=== PATIENT | female | born 2000 | race Caucasian/White ===

== ENCOUNTER 2020-01-22 19:47 | Outpatient (CLI) | payer OTHER ==
[2020-01-22 20:17] LABS: APPEARANCE,URINE CLOUDY; BILIRUBIN,URINE NEGATIVE (NEGATIVE); COLOR,URINE YELLOW; GLUCOSE, URINE NEGATIVE (NEGATIVE); KETONES,URINE NEGATIVE (NEGATIVE); LEUKOCYTE ESTERASE,URINE MODERATE (NEGATIVE); NITRITE,URINE NEGATIVE (NEGATIVE); PROTEIN,URINE 100 mg/dL (NEGATIVE); URINE SPECIFIC GRAVITY 1.031
[2020-01-22 20:32] LABS: URINE AMPHETAMINES SCREEN NEGATIVE; URINE BARBITURATES SCREEN NEGATIVE; URINE BENZODIAZEPINES SCREEN NEGATIVE; URINE COCAINE SCREEN NEGATIVE; URINE MARIJUANA (THC) SCREEN NEGATIVE; URINE METHADONE SCREEN NEGATIVE; URINE PHENCYCLIDINE SCREEN NEGATIVE
[2020-01-22 21:23] LABS: ABSOLUTE EOSINOPHILS # (AUTO) 0.1 10^3/uL (0.0-0.6); ABSOLUTE LYMPHOCYTES (AUTO) 1.7 10^3/uL (0.5-4.7); ABSOLUTE MONOCYTES (AUTO) 0.5 10^3/uL (0.1-1.4); ABSOLUTE NEUT (AUTO) 5.9 10^3/uL (1.7-8.2); BASOPHILS % (AUTO) 0.4 % (0-2); EOSINOPHILS % (AUTO) 0.8 % (0-6); HEMATOCRIT 30.5 % (36.0-47.0); HEMOGLOBIN 10.1 g/dL (12.0-15.5); LYMPHOCYTES % (AUTO) 21.2 % (13-45); MEAN CORPUSCULAR HEMOGLOBIN 23.7 pg (27.0-33.4); MEAN CORPUSCULAR HGB CONC 33.1 g/dL (32.0-36.0); MEAN CORPUSCULAR VOLUME 72 fl (80-97); MONOCYTES % (AUTO) 5.6 % (3-13); PLATELET COUNT 261 10^3/uL (150-450); RED BLOOD COUNT 4.26 10^6/uL (3.72-5.28); RED CELL DISTRIBUTION WIDTH 15.8 % (11.5-14.0); TOTAL CELLS COUNTED % (AUTO) 100 %; WHITE BLOOD COUNT 8.2 10^3/uL (4.0-10.5)
[2020-01-22 21:30] LABS: UR PRO/CREAT RATIO RESULT 0.1 mg/mg (0.0-0.2); URINE CREATININE 203.5 mg/dL (16-327)
[2020-01-22 21:41] LABS: ALBUMIN 3.2 g/dL (3.5-5.0); ALKALINE PHOSPHATASE 156 U/L (38-126); ANION GAP 7 (5-19); ASPARTATE AMINO TRANSFERASE 27 U/L (14-36); BILIRUBIN,TOTAL 0.6 mg/dL (0.2-1.3); BLOOD UREA NITROGEN 16 mg/dL (7-20); CALCIUM 8.8 mg/dL (8.4-10.2); CARBON DIOXIDE 21 mmol/L (22-30); CHLORIDE 103 mmol/L (98-107); GLUCOSE 78 mg/dL (75-110); POTASSIUM 4.3 mmol/L (3.6-5.0); TOTAL PROTEIN 6.3 g/dL (6.3-8.2); URIC ACID 5.5 mg/dL (2.5-6.2)
--- NOTE | 2020-01-24 12:54 | Non Stress Test Report ---
Non Stress Test Datetime Report Generated by CPN: 01/24/2020 12:54 DEMOGRAPHIC Test Number: 1 EGA NST: 37.2 INDICATION Indication for Study (NST) Other: lc and bp workup URINE RESULTS Urine Protein, NST: Positive Urine Ketones - NST: Negative Urine Glucose - NST: Negative Urine Blood - NST: Negative MONITORING Monitor Explained: Monitor Explained; Test Explained; Patient Verbalized Understanding Time on Monitor: 01/22/2020 20:08 Time off Monitor: 01/22/2020 22:09 NST Duration: 121 NST INTERVENTIONS NST Interventions: None Physician Notified NST: Dr. Peyman BABY A: [id number] BABY A Movement : Present Contraction Frequency : irreg FHR Baseline : 145 Accelerations : 15X15 Decelerations : None Variability : Moderate 6-25bpm NST Review: Meets Criteria for Reactive NST NST Review and Verified By : Nelida Bunch RN Results: Reactive NST REPORT Report Trigger: Send Report
== END 2020-01-22 22:23 | disposition home or self-care (01) ==
LOC: LC 19:47
PROVIDERS: ATTEND Obstetrics & Gynecology
DX: O47.1 False labor at or after 37 completed weeks of gestation (principal); Z3A.37 37 weeks gestation of pregnancy
CPT/HCPCS: 36415; 59025; 80053; 80307; 81001; 82570; 83615; 84156; 84550; 85025

== ENCOUNTER 2020-01-24 12:55 | Outpatient (CLI) | payer OTHER ==
[2020-01-24 14:04] LABS: 24 HOUR URINE PROTEIN RESULT 231 mg/day (42-225); URINE PROTEIN 11.2 mg/dL (<12)
--- NOTE | 2020-01-24 14:22 | Non Stress Test Report ---
Non Stress Test Datetime Report Generated by CPN: 01/24/2020 14:22 DEMOGRAPHIC EGA NST: 37.4 MONITORING Monitor Explained: Monitor Explained; Test Explained; Patient Verbalized Understanding Time on Monitor: 01/24/2020 13:36 Time off Monitor: 01/24/2020 14:10 NST Duration: 34 NST INTERVENTIONS NST Interventions: PO Hydration Physician Notified NST: Dr. Delgado BABY A Movement : Present Contraction Frequency : rare FHR Baseline : 140 Accelerations : 15X15 Decelerations : None Variability : Moderate 6-25bpm NST Review: Meets Criteria for Reactive NST NST Review and Verified By : B Baidy RN NST Results: Reactive NST REPORT Report Trigger: Send Report
== END 2020-01-24 14:19 | disposition home or self-care (01) ==
LOC: LC 12:55
PROVIDERS: ATTEND Obstetrics & Gynecology Gynecology
DX: O12.13 Gestational proteinuria, third trimester (principal); Z3A.37 37 weeks gestation of pregnancy
CPT/HCPCS: 59025; 84112; 84156

== ENCOUNTER 2020-01-27 23:20 | Outpatient (CLI) | payer OTHER ==
[2020-01-28 01:05] LABS: APPEARANCE,URINE CLEAR; BILIRUBIN,URINE NEGATIVE (NEGATIVE); COLOR,URINE YELLOW; GLUCOSE, URINE NEGATIVE (NEGATIVE); KETONES,URINE NEGATIVE (NEGATIVE); LEUKOCYTE ESTERASE,URINE NEGATIVE (NEGATIVE); NITRITE,URINE NEGATIVE (NEGATIVE); PROTEIN,URINE 30 mg/dL (NEGATIVE); URINE SPECIFIC GRAVITY 1.017; UROBILINOGEN,URINE NEGATIVE mg/dL (<2.0)
[2020-01-28 02:10] LABS: URINE AMPHETAMINES SCREEN NEGATIVE; URINE BENZODIAZEPINES SCREEN NEGATIVE; URINE COCAINE SCREEN NEGATIVE; URINE MARIJUANA (THC) SCREEN NEGATIVE; URINE METHADONE SCREEN NEGATIVE; URINE PHENCYCLIDINE SCREEN NEGATIVE
[2020-01-28 02:12] LABS: URINE BARBITURATES SCREEN NEGATIVE
--- NOTE | 2020-01-28 02:30 | Non Stress Test Report ---
Non Stress Test Datetime Report Generated by CPN: 01/28/2020 02:30 DEMOGRAPHIC Test Number: 1 EGA NST: 38.1 INDICATION Indication for Study (NST) Other: Labor Check VITAL SIGNS Temperature - NST: 98.4 Pulse - NST: 67 RESP - NST: 14 NBPSYS NST: 133 NBPDIA NST: 76 MONITORING Monitor Explained: Monitor Explained; Test Explained; Patient Verbalized Understanding Time on Monitor: 01/28/2020 12:00 Time off Monitor: 01/28/2020 12:20 NST Duration: 20 NST INTERVENTIONS NST Interventions: PO Hydration; Reposition Patient Physician Notified NST: Delgado BABY A: [id number] BABY A Movement : Present Contraction Frequency : 2-5 FHR Baseline : 130 Accelerations : 15X15 Decelerations : None Variability : Moderate 6-25bpm NST Review: Meets Criteria for Reactive NST NST Review and Verified By : DAYNA Rocha NST Results: Reactive NST REPORT Report Trigger: Send Report
== END 2020-01-28 02:28 | disposition home or self-care (01) ==
LOC: LC 23:20
PROVIDERS: ATTEND Obstetrics & Gynecology Gynecology
DX: O47.1 False labor at or after 37 completed weeks of gestation (principal); Z3A.38 38 weeks gestation of pregnancy
CPT/HCPCS: 80307; 81005

== ENCOUNTER 2020-02-01 15:49 | Inpatient (IN) | payer OTHER ==
[2020-02-01 16:27] LABS: ABSOLUTE EOSINOPHILS # (AUTO) 0.1 10^3/uL (0.0-0.6); ABSOLUTE LYMPHOCYTES (AUTO) 1.8 10^3/uL (0.5-4.7); ABSOLUTE MONOCYTES (AUTO) 0.5 10^3/uL (0.1-1.4); ABSOLUTE NEUT (AUTO) 6.3 10^3/uL (1.7-8.2); BASOPHILS % (AUTO) 0.5 % (0-2); EOSINOPHILS % (AUTO) 0.7 % (0-6); HEMATOCRIT 31.9 % (36.0-47.0); HEMOGLOBIN 10.6 g/dL (12.0-15.5); LYMPHOCYTES % (AUTO) 20.7 % (13-45); MEAN CORPUSCULAR HEMOGLOBIN 23.3 pg (27.0-33.4); MEAN CORPUSCULAR VOLUME 71 fl (80-97); PLATELET COUNT 266 10^3/uL (150-450); RED BLOOD COUNT 4.52 10^6/uL (3.72-5.28); RED CELL DISTRIBUTION WIDTH 15.9 % (11.5-14.0); SEGMENTED NEUTROPHILS % (AUTO) 72.1 % (42-78); TOTAL CELLS COUNTED % (AUTO) 100 %; WHITE BLOOD COUNT 8.7 10^3/uL (4.0-10.5)
[2020-02-01] MEDS ORDERED: NALBUPHINE HCL INJ 10 MG/1 ML AMPULE ONE (16:27)
[2020-02-01] MEDS ORDERED: PROMETHAZINE HCL INJ 25 MG/1 ML VIAL ONE (16:27)
[2020-02-01 16:29] LABS: APPEARANCE,URINE CLOUDY; BILIRUBIN,URINE NEGATIVE (NEGATIVE); COLOR,URINE YELLOW; GLUCOSE, URINE NEGATIVE (NEGATIVE); KETONES,URINE NEGATIVE (NEGATIVE); LEUKOCYTE ESTERASE,URINE MODERATE (NEGATIVE); NITRITE,URINE NEGATIVE (NEGATIVE); PROTEIN,URINE 100 mg/dL (NEGATIVE); URINE SPECIFIC GRAVITY 1.024; UROBILINOGEN,URINE NEGATIVE mg/dL (<2.0)
[2020-02-01] MEDS ORDERED: PROMETHAZINE HCL INJ 25 MG/1 ML VIAL IV ONE (16:30)
[2020-02-01] MEDS ORDERED: NALBUPHINE HCL INJ 10 MG/1 ML AMPULE INJ ONE (16:31)
--- NOTE | 2020-02-01 16:41 | Admission Physical ---
Datetime Report Generated by CPN: 02/01/2020 16:41 CURRENT ADMISSION Chief Complaint: Suspected Ruptured Membranes Chief Complaint Other: SROM at 1530-light meconium Indication for Induction: Not Applicable Admit Impression : Term, Intrauterine ; Active Labor; Ruptured Membranes Admit Impression- Other: Gross SROM Admit Plan: Admit to Unit; Initiate Labor Protocol ALLERGIES Medication Allergies: No Medication Allergies: No Known Allergies (01/27/2020) Latex: No Latex Allergies Food Allergies: denies Environmental Allergies: denies OBSTETRICAL HISTORY EDC: 02/10/2020 00:00 : 1 Para: 0 Term: 0 : 0 SAB: 0 IAB: 0 Ectopic: 0 Livin Cesareans: 0 VBACs: 0 Multiple Births: 0 Gestational Diabetes: No Rh Sensitization: No Incompetent Cervix: No ANGEL: No Infertility: No ART Treatment: No Uterine Anomaly: No IUGR: No Hx Previous C/S: No Macrosomia: No Hx Loss/Stillborn: No PIH: No Hx : No Placenta Previa/Abruption: No Depression/PP Depression: No PTL/PROM: No Post Hemorrhage: No Current Procedures: Ultrasound; NST Obstetrical History Comments: g1-current , supposed to have an echo on the heart but hasnt been able to due to Covid 19 SEE RECORDS Alcohol: No Marijuana : No Cocaine: No Other Illicit Drugs: No Cigarettes: Never Smoker. [id number] MEDICAL HISTORY Diabetes: No Blood Transfusion: No Pulmonary Disease (Asthma, TB): No Breast Disease: No Hypertension: No Regional Coordinator Surgery: No Heart Disease: No Hosp/Surgery: Yes Autoimmune Disorder: No Anesthetic Complications: No Kidney Disease: No Abnormal Pap Smear: No Neuro/Epilepsy: No Psychiatric Disorders: No Other Medical Diseases: No Hepatitis/Liver Disease: No Significant Family History: No Varicosities/Phlebitis: No Trauma/Violence : No Thyroid Dysfunction: Yes Medical History Comments: heart murmur (VSD), bunionectomy on both feet, hashimotos, wisdom teeth removed INFECTIOUS HISTORY Gonorrhea: No Genital Herpes: No Chlamydia: No Tuberculosis: No Syphilis: No Hepatitis: No HIV/AIDS Exposure: No Rash or Viral Illness: No HPV: No PHYSICAL EXAM General: Normal Neurologic: Normal Thyroid: Deferred Heart: Normal Lungs: Normal Breast: Deferred Back: Normal Abdomen: Normal Genitourinary Exam: Deferred Extremities: Normal DTRs: Normal Pelvic Type: Adequate Physical Exam Comments: Gravid Vital Signs: Reviewed; Within Normal Limits VAGINAL EXAM Dilatation: 5 Effacement: 90 Station: -1 MEMBRANES Membranes: Ruptured Amniotic Fluid Color: Meconium, Light FETUS A EGA: 38.5 Monitoring: External US FHR- Baseline: 130 Variability: Moderate 6-25bpm Accelerations: 15X15 Decelerations: None FHR Category: Category I Presentation: Vertex Admit Comment: G1 Has heart murmur-small VSD; echo not done due to pandemic Hashimotos-labs done GBS negative records rev-on chart Plan: admit, pain management, IVF PLANS FOR LABOR AND DELIVERY Labor and Delivery: None Pain Management: Medications; Epidural Feeding Preference: Breast Benefit of Breast Feed Discussed: Yes Circumcision: N/A INFORMED CONSENT Assignment: Pastora Sifuentes MD Signature: with User ID: Mary : with User ID: Mary : I personally evaluated and examined the patient in conjunction with the MLP and agree with the assessment, treatment plan and disposition.
[2020-02-01 16:46] LABS: URINE AMPHETAMINES SCREEN NEGATIVE; URINE BARBITURATES SCREEN NEGATIVE; URINE BENZODIAZEPINES SCREEN NEGATIVE; URINE COCAINE SCREEN NEGATIVE; URINE MARIJUANA (THC) SCREEN NEGATIVE; URINE METHADONE SCREEN NEGATIVE; URINE PHENCYCLIDINE SCREEN NEGATIVE
[2020-02-01] MEDS ORDERED: OXYTOCIN/0.9 % SODIUM CHLORIDE 30 UNIT/500 ML RTUINJ ONE (18:17)
[2020-02-01] MEDS ORDERED: LIDOCAINE 1% INJ-PF (10 MG/ML) 30 ML SDV ONE (18:17)
[2020-02-01] MEDS ORDERED: MISOPROSTOL 0.2 MG TABLET ONE (18:17)
[2020-02-01] MEDS ORDERED: OXYTOCIN 10 UNIT/ML VIAL ONE (18:17)
[2020-02-01] MEDS ORDERED: EPHEDRINE SULFATE INJ 50 MG/1 ML AMPULE ONE (18:28)
[2020-02-01] MEDS ORDERED: FENTANYL/BUPIVACAINE/NS/PF 300 MCG/150 ML RTUINJ EPI ONE (18:28)
[2020-02-01] MEDS ORDERED: BUPIVACAINE HCL 0.25 % INJ/PF (2.5 MG/1 ML) 30 ML VIAL ONE (18:28)
[2020-02-01] MEDS ORDERED: FENTANYL CITRATE INJ/PF 100 MCG/2 ML AMPUL ONE (18:29)
[2020-02-01] MEDS ORDERED: DIPHENHYDRAMINE HCL 50 MG/ML VIAL IV ONE (20:33)
[2020-02-01] MEDS ORDERED: DIPHENHYDRAMINE HCL 50 MG/ML VIAL ONE (20:35)
[2020-02-02] MEDS ORDERED: OXYTOCIN/0.9 % SODIUM CHLORIDE 30 UNIT/500 ML RTUINJ IV PRN ×2 (03:11→03:56)
[2020-02-02] MEDS ORDERED: DIPH/PERTUSS(ACELL)/TETANUS VAC/PF 0.5 ML SYR (>=10YO) IM PRN (03:56)
[2020-02-02] MEDS ORDERED: NA PHOS,M-B/NA PHOS,DI-BA (ADULT) 133 ML ENEMA PR PRN (03:56)
[2020-02-02] MEDS ORDERED: ACETAMINOPHEN 650 MG SUPP.RECT PR PRN (03:56)
[2020-02-02] MEDS ORDERED: PROMETHAZINE HCL INJ 25 MG/1 ML VIAL IV PRN (03:56)
[2020-02-02] MEDS ORDERED: PSEUDOEPHEDRINE HCL 30 MG TABLET PO PRN (03:56)
[2020-02-02] MEDS ORDERED: MAGNESIUM HYDROXIDE SUSP 30 ML UDCUP PO PRN (03:56)
[2020-02-02] MEDS ORDERED: PROMETHAZINE HCL 25 MG SUPP.RECT PR PRN (03:56)
[2020-02-02] MEDS ORDERED: ACETAMINOPHEN WITH CODEINE #3 TABLET PO PRN ×2 (03:56)
[2020-02-02] MEDS ORDERED: DIPHENHYDRAMINE HCL 25 MG CAPSULE PO PRN (03:56)
[2020-02-02] MEDS ORDERED: DIBUCAINE 1% OINTMENT 28 GM TP PRN (03:56)
[2020-02-02] MEDS ORDERED: GLYCERIN/WITCH HAZEL LEAF 1 EACH MED..WIPE TP PRN (03:56)
[2020-02-02] MEDS ORDERED: ZOLPIDEM TARTRATE 5 MG TABLET PO PRN (03:56)
[2020-02-02] MEDS ORDERED: MEASLES,MUMPS&RUBELLA VACC/PF 0.5 ML VIAL SUBCUT PRN (03:56)
[2020-02-02] MEDS ORDERED: PROMETHAZINE HCL 25 MG TABLET PO PRN (03:56)
[2020-02-02] MEDS ORDERED: BENZOCAINE/MENTHOL AEROSOL SPRAY 56 ML TOP PRN (03:56)
--- NOTE | 2020-02-02 05:01 | Delivery Summary ---
Del Sum A-C Datetime Report Generated by CPN: 02/02/2020 05:00 DELIVERY PERSONNEL DELIVERY PERSONNEL: [id number] Delivery Doctor:: Pastora Sifuentes MD Labor and Delivery Nurse:: Afsaneh Hale RNinvestment recovery technician Nurse:: CHICA Jenkins Nursery Nurse:: Mary Rosado Nursery Nurse:: Marha Argueta RN Linen Checker/HIGH PRESSURE KETTLE OPERATOR: Aria Lockett, MANGLE FEEDER MATERNAL INFORMATION Delivery Anesthesia: Epidural Medications After Delivery: Pitocin 30 Units in 500ml NS/D5W; Other-Please Comment Meds After Delivery Comment: Cytotec 400mcg PO Estimated Blood Loss (ml): 250 Delivery QBL: 250 Maternal Complications: None LABOR SUMMARY EDC: 02/10/2020 00:00 No. Babies in Womb: 1 Attempted: No Labor Anesthesia: Epidural LABOR INFORMATION Reason for Induction: Not Applicable Onset of Labor: 02/01/2020 16:18 Complete Dilatation: 02/01/2020 23:51 Oxytocin: Augmentation Group B Beta Strep: Negative Antibiotics # of Doses: 0 Antibiotics Time of Last Dose: n/a Name of Antibiotic Given: n/a Steroids Given: None Reason Steroids Not Administered: Not Applicable MEMBRANES Membranes Rupture Method: Spontaneous Rupture of Membranes: 02/01/2020 15:30 Length of Rupture (hr): 12.13 Amniotic Fluid Color: Light Meconium Amniotic Fluid Amount: Moderate Amniotic Fluid Odor: Normal STAGES OF LABOR Stage 1 hr: 7 Stage 1 min: 33 Stage 2 hr: 3 Stage 2 min: 47 Stage 3 hr: 0 Stage 3 min: 3 Total Time in Labor hr: 11 Total Time in Labor min: 23 VAGINAL DELIVERY Episiotomy: None Laceration #1: Perineal Laceration Extension #1: First Degree Laceration Repair: Yes Laceration Repair Note: repair with 3-0 chromic suture. Sponge Count Correct: Yes; Vaginal Sweep Performed Sharps Count Correct: Yes CSECTION DELIVERY Primary Indication: N/A Secondary Indication: N/A CSection Incidence: N/A Labor: N/A Elective: N/A CSection Incision: N/A BABY A INFORMATION Delivery Date/Time: 02/02/2020 03:38 Method of Delivery: Vaginal Nurse Controlled Delivery: No Born in Route : No : N/A Forceps: N/A Vacuum Extraction: N/A Shoulder Dystocia : No PRESENTATION/POSITION BABY A Presentation: Cephalic Cephalic Presentation: Vertex Vertex Position: Left Occipital Anterior Breech Presentation: N/A PLACENTA INFORMATION BABY A Placenta Delivery Time : 02/02/2020 03:41 Placenta Method of Delivery: Spontaneous Placenta Status: Delivered SCORES BABY A Heart Rate 1 min: >100 bpm Resp Effort 1 min: Good Cry Reflex Irritability 1 min: Cough or Sneeze or Pulls Away Muscle Tone 1 min: Active Motion Color 1 min: Blue/Pale Resuscitation Effort 1 min: Tactile Stimulation SCORE 1 MIN: 8 Heart Rate 5 min: >100 bpm Resp Effort 5 min: Good Cry Reflex Irritability 5 min: Cough or Sneeze or Pulls Away Muscle Tone 5 min: Active Motion Color 5 min: Body [place], Extremities Blue SCORE 5 MIN: 9 INFANT INFORMATION BABY A Gestational Age at Delivery: 38.6 Gestational Status: Early Term- 37- 38.6 Weeks Infant Outcome : Liveborn Infant Condition : Stable Infant Sex: Female IDENTIFICATION BABY A Infant Verification Date/Time: 02/02/2020 03:51 ID Band Number: [id number] Mother's Name Verified: Yes RN Verifying Infant: K Mahad, RN/ D [place] [facility] WEIGHT/LENGTH BABY A Infant Birthweight (gm): 3729 Infant Weight (lb): 8 Infant Weight (oz): 4 Infant Length (in): 21.75 Length (cm): 55.25 CORD INFORMATION BABY A No. Cord Vessels: 3 Nuchal Cord : N/A Cord Blood Taken: Yes-For Storage (Mom's Blood type +) Infant Suction: None ASSESSMENT BABY A Complications: None Physical Findings at Delivery: Molding of the Head Respirations: Appears Normal Skin to Skin: No Skin to Skin Time (min): 60 Engine Tester/ALS Called : Yes Infant Care By: Haylie Rosado RN Transferred To: Remains with Mother BABY B INFORMATION : N/A SIGNATURES Signature: with User ID: [email or web address] : I personally evaluated and examined the patient in conjunction with the MLP and agree with the assessment, treatment plan and disposition.
[2020-02-02] MEDS ORDERED: IBUPROFEN 800 MG TABLET ONE (05:28)
[2020-02-02] MEDS: IBUPROFEN 800 MG TABLET PO SCH ×3 (05:30→21:10)
[2020-02-02] MEDS: FAMOTIDINE 20 MG TABLET PO SCH ×2 (09:18→21:10)
[2020-02-02] MEDS: FERROUS SULFATE 325 MG TABLET PO SCH ×2 (09:18→17:06)
[2020-02-02] MEDS: DOCUSATE SODIUM 100 MG CAPSULE PO SCH ×2 (09:18→17:07)
[2020-02-02] MEDS: SENNOSIDES/DOCUSATE 8.6-50 MG 1 EACH TABLET PO SCH (09:18)
[2020-02-02] MEDS: PRENATAL VITAMIN W DHA CAPSULE PO SCH (09:18)
--- NOTE | 2020-02-02 09:19 | PDOC PROGRESS REPORT ---
Subjective-OB Progress Note for:: 02/02/20 Subjective: Doing well, no c/o, , family at BS, voiding, scant bleeding Physical Exam (OB) Vital Signs: Temp Pulse Resp BP Pulse Ox 98.7 F 106 H 18 123/80 99 02/02/20 07:51 02/02/20 07:51 02/02/20 07:51 02/02/20 07:51 02/02/20 07:51 Intake & Output 02/01/20 02/02/20 02/03/20 06:59 06:59 06:59 Weight 87.1 kg - PIH/Pre-Eclampsia DTR's: 2 + Clonus: Negative Headache: Absent Epigastric Pain: No Visual Changes: No - Lochia Lochia Amount: Scant < 10 ml Lochia Color: Rubra/Red - Abdomen Description: Soft, Round Fundal Description: Firm, Midline Fundal Height: u/u - u/2 Objective-Diagnostic Laboratory: 02/01/20 16:10 02/01/20 02/01/20 02/01/20 15:50 16:10 16:10 WBC 8.7 RBC 4.52 Hgb 10.6 L Hct 31.9 L MCV 71 L MCH 23.3 L MCHC 33.0 RDW 15.9 H Plt Count 266 Seg Neutrophils % 72.1 Urine Color YELLOW Urine Appearance CLOUDY Urine pH 5.0 Ur Specific [place] 1.024 Urine Protein 100 H Urine Glucose (UA) NEGATIVE Urine Ketones NEGATIVE Urine Blood LARGE H Urine Nitrite NEGATIVE Ur Leukocyte Esterase MODERATE H Blood Type A POSITIVE Antibody Screen NEGATIVE Assessment and Plan(PN) - Assessment and Plan (1) Vaginal delivery Is this a current diagnosis for this admission?: Yes - Time Spent with Patient Time with patient: Less than 15 minutes Medications reviewed and adjusted accordingly: Yes - Disposition Anticipated Discharge: Home Within: within 24 hours
[2020-02-03] MEDS: IBUPROFEN 800 MG TABLET PO SCH ×3 (06:46→22:02)
[2020-02-03 07:35] LABS: HEMATOCRIT 28.1 % (36.0-47.0); HEMOGLOBIN 9.2 g/dL (12.0-15.5); MEAN CORPUSCULAR HEMOGLOBIN 23.2 pg (27.0-33.4); MEAN CORPUSCULAR HGB CONC 32.7 g/dL (32.0-36.0); MEAN CORPUSCULAR VOLUME 71 fl (80-97); PLATELET COUNT 216 10^3/uL (150-450); RED BLOOD COUNT 3.95 10^6/uL (3.72-5.28); RED CELL DISTRIBUTION WIDTH 16.7 % (11.5-14.0); WHITE BLOOD COUNT 8.9 10^3/uL (4.0-10.5)
[2020-02-03] MEDS: FERROUS SULFATE 325 MG TABLET PO SCH ×2 (09:15→17:33)
[2020-02-03] MEDS: FAMOTIDINE 20 MG TABLET PO SCH ×2 (09:15→22:06)
[2020-02-03] MEDS: SENNOSIDES/DOCUSATE 8.6-50 MG 1 EACH TABLET PO SCH (09:15)
[2020-02-03] MEDS: PRENATAL VITAMIN W DHA CAPSULE PO SCH (09:15)
[2020-02-03] MEDS: DOCUSATE SODIUM 100 MG CAPSULE PO SCH ×2 (09:15→17:33)
--- NOTE | 2020-02-03 11:10 | PDOC PROGRESS REPORT ---
Subjective-OB Progress Note for:: 02/03/20 Subjective: 19yo G1 now P1 s/p ppd 1 ambulating, voiding without difficulty. Reports pain well controlled with medication, denies any concerns today, reports she has been stressed due to baby's broken clavicle, wondering if that might be why her blood pressure is high. Denies s/s of pre-e. Physical Exam (OB) Vital Signs: Temp Pulse Resp BP Pulse Ox 97.5 F 100 18 138/94 H 96 02/03/20 07:30 02/03/20 07:30 02/03/20 07:30 02/03/20 07:30 02/03/20 07:30 Intake & Output 02/02/20 02/03/20 02/04/20 06:59 06:59 06:59 Intake Total 1200 Balance 1200 Weight 87.1 kg - General General Appearance: Appears well In distress: None - PIH/Pre-Eclampsia DTR's: 2 + Clonus: Negative Headache: Absent Epigastric Pain: No Visual Changes: No - Episiotomy/Laceration Site Condition: Well Approximated - Lochia Lochia Amount: Scant < 10 ml Lochia Color: Rubra/Red - Abdomen Fundal Description: Firm, Midline Fundal Height: u/u - u/2 - Respiratory Respiratory Status: No respiratory distress - Extremities Upper extremity: Normal inspection Lower extremities: Normal inspection - Neurological Cognition: Normal Orientation: AAOx4 - Psychological Associated symptoms: Normal affect, Normal mood Objective-Diagnostic Laboratory: 02/03/20 07:20 02/03/20 07:20 WBC 8.9 RBC 3.95 Hgb 9.2 L Hct 28.1 L MCV 71 L MCH 23.2 L MCHC 32.7 RDW 16.7 H Plt Count 216 Assessment and Plan(PN) - Assessment and Plan (1) Anemia complicating , third trimester Is this a current diagnosis for this admission?: Yes Plan: increase dietary iron and FeSO4 BID (2) Perineal laceration during delivery, delivered Is this a current diagnosis for this admission?: Yes Plan: continue to monitor for s/s/ of infection (3) Hypertension, condition or complication Is this a current diagnosis for this admission?: Yes Plan: continue to monitor for s/s/ of pre-e (4) Vaginal delivery Is this a current diagnosis for this admission?: Yes Plan: routine pp care - Time Spent with Patient Time with patient: Less than 15 minutes Medications reviewed and adjusted accordingly: Yes - Disposition Anticipated Discharge: Home Within: within 24 hours
[2020-02-04] MEDS: IBUPROFEN 800 MG TABLET PO SCH (06:36)
--- NOTE | 2020-02-04 09:42 | PDOC DISCHARGE SUMMARY ---
Impression - Admit/DC Date/PCP Admission Date/Primary Care Provider: 02/01/20 15:52 WALE PETER PA-C Discharge Date: 02/04/20 - Discharge Diagnosis (1) Anemia complicating , third trimester Is this a current diagnosis for this admission?: Yes (2) Hypertension, condition or complication Is this a current diagnosis for this admission?: Yes (3) Perineal laceration during delivery, delivered Is this a current diagnosis for this admission?: Yes (4) Vaginal delivery Is this a current diagnosis for this admission?: Yes - Additional Information Discharge Diet: Regular Discharge Activity: Balance Activity w/Rest, Pelvic Rest Referrals: WALE PETER PA-C [Primary Care Provider] - Prescriptions: Ibuprofen [Motrin 800 mg Tablet] 800 mg PO Q8HP PRN #60 tablet PRN Reason: Home Medications: Pnv No.95/Ferrous Fum/Folic AC [ Vitamins Tablet] 1 tab PO DAILY 01/22/20 Ibuprofen [Motrin 800 mg Tablet] 800 mg PO Q8HP PRN #60 tablet 02/04/20 Results Laboratory Results: WBC 8.9 10^3/uL (4.0-10.5) 02/03/20 07:20 RBC 3.95 10^6/uL (3.72-5.28) 02/03/20 07:20 Hgb 9.2 g/dL (12.0-15.5) L 02/03/20 07:20 Hct 28.1 % (36.0-47.0) L 02/03/20 07:20 MCV 71 fl (80-97) L 02/03/20 07:20 MCH 23.2 pg (27.0-33.4) L 02/03/20 07:20 MCHC 32.7 g/dL (32.0-36.0) 02/03/20 07:20 RDW 16.7 % (11.5-14.0) H 02/03/20 07:20 Plt Count 216 10^3/uL (150-450) 02/03/20 07:20 Lymph % (Auto) 20.7 % (13-45) 02/01/20 16:10 [place] % (Auto) 6.0 % (3-13) 02/01/20 16:10 Eos % (Auto) 0.7 % (0-6) 02/01/20 16:10 Baso % (Auto) 0.5 % (0-2) 02/01/20 16:10 Absolute Neuts (auto) 6.3 10^3/uL (1.7-8.2) 02/01/20 16:10 Absolute Lymphs (auto) 1.8 10^3/uL (0.5-4.7) 02/01/20 16:10 Absolute Monos (auto) 0.5 10^3/uL (0.1-1.4) 02/01/20 16:10 Absolute Eos (auto) 0.1 10^3/uL (0.0-0.6) 02/01/20 16:10 Absolute Basos (auto) 0.0 10^3/uL (0.0-0.2) 02/01/20 16:10 Seg Neutrophils % 72.1 % (42-78) 02/01/20 16:10 Urine Color YELLOW 02/01/20 15:50 Urine Appearance CLOUDY 02/01/20 15:50 Urine pH 5.0 (5.0-9.0) 02/01/20 15:50 Ur Specific [place] 1.024 02/01/20 15:50 Urine Protein 100 mg/dL (NEGATIVE) H 02/01/20 15:50 Urine Glucose (UA) NEGATIVE mg/dL (NEGATIVE) 02/01/20 15:50 Urine Ketones NEGATIVE mg/dL (NEGATIVE) 02/01/20 15:50 Urine Blood LARGE (NEGATIVE) H 02/01/20 15:50 Urine Nitrite NEGATIVE (NEGATIVE) 02/01/20 15:50 Urine Bilirubin NEGATIVE (NEGATIVE) 02/01/20 15:50 Urine Urobilinogen NEGATIVE mg/dL (<2.0) 02/01/20 15:50 Ur Leukocyte Esterase MODERATE (NEGATIVE) H 02/01/20 15:50 Urine Ascorbic Acid 20 (NEGATIVE) H 02/01/20 15:50 Urine Opiates Screen NEGATIVE 02/01/20 15:50 Urine Methadone Screen NEGATIVE 02/01/20 15:50 Ur Barbiturates Screen NEGATIVE 02/01/20 15:50 Ur Phencyclidine Scrn NEGATIVE 02/01/20 15:50 Ur Amphetamines Screen NEGATIVE 02/01/20 15:50 U Benzodiazepines Scrn NEGATIVE 06/01/20 15:50 Urine Cocaine Screen NEGATIVE 02/01/20 15:50 U Marijuana (THC) Screen NEGATIVE 02/01/20 15:50 RPR NONREACTIVE (NONREACTIVE) 02/01/20 16:10 Blood Type A POSITIVE 02/01/20 16:10 Antibody Screen NEGATIVE 02/01/20 16:10 Plan Plan of Treatment: follow up in one week at [facility] for BP check
[2020-02-04] MEDS: FAMOTIDINE 20 MG TABLET PO SCH (10:38)
[2020-02-04] MEDS: FERROUS SULFATE 325 MG TABLET PO SCH (10:38)
[2020-02-04] MEDS: DOCUSATE SODIUM 100 MG CAPSULE PO SCH (10:38)
[2020-02-04] MEDS: PRENATAL VITAMIN W DHA CAPSULE PO SCH (10:38)
[2020-02-04] MEDS: SENNOSIDES/DOCUSATE 8.6-50 MG 1 EACH TABLET PO SCH (10:39)
[2020-02-04 10:53] VITALS: BP 127/89
== END 2020-02-04 12:45 | disposition home or self-care (01) | DRG 807 ==
LOC: LC 15:49 → LR 15:52 → 2S 02-02 05:25
PROVIDERS: ADMIT Obstetrics & Gynecology; ATTEND Obstetrics & Gynecology
PROC: 10E0XZZ Delivery of Products of Conception, External Approach (ICD-10-PCS; principal; 2020-02-02)
DX: O99.284 Endocrine, nutritional and metabolic diseases complicating childbirth (principal); Z37.0 Single live birth; O77.0 Labor and delivery complicated by meconium in amniotic fluid; O70.0 First degree perineal laceration during delivery; O99.02 Anemia complicating childbirth; D64.9 Anemia, unspecified; R01.1 Cardiac murmur, unspecified; E06.3 Autoimmune thyroiditis; O16.5 Unspecified maternal hypertension, complicating the puerperium; Z3A.38 38 weeks gestation of pregnancy
CPT/HCPCS: 1967; 36415; 80307; 81005; 85025; 85027; 86592; 86850; 86900; 86901; 94760; J1200; J2300; J2550; J2590; J3010; J3490

== ENCOUNTER → 2020-05-02 | Outpatient (CLI) | payer OTHER ==
[2020-05-02 12:49] VITALS: BP 105/59
--- NOTE | 2020-05-02 12:49 | ER [facility] ASSESSMENT REPORT ---
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 - Symptoms Subjective Fever([place] feverish): No Chills: No Muscule Aches: No Runny Nose: Yes Sore Throat: Yes Cough (New or worsening chronic cough): Yes Shortness of breath: No Nausea or Vomiting: No Headache: No Abdominal Pain: Yes Diarrhea(3 or more loose stools in last 24 hours): No - Do you have any of the following Chronic lung disease: Asthma or emphysema or COPD: No Cystic Fibrosis: No Diabetes: No High Blood Pressure: No Cardiovascular Disease: No Chronic Kidney Disease: No Chronic Liver Disease: No Chronic blood disorder like Sickle Cell Disease: No 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 or medication: Yes Neurologic condition that limits movement: No Developmental delay - Moderate to Severe: No Recent (within past 2 weeks) or current : No Morbid Obesity (>100 pounds over ideal weight): No - Objective Temperature: 97.4 F Pulse Rate: 74 Respiratory Rate: 16 Blood Pressure: 105/59 O2 Sat by Pulse Oximetry: 98 Objective: Given above, testing performed: flu, strep, covid Disposition: Home; Selfcare General - General Stated Complaint: sore throat, cough, rhinorrhea Time Seen by Provider: 05/02/20 12:00 Mode of Arrival: Ambulatory Information source: Patient - HPI Notes: 20-year-old female presents [facility] clinic for COVID-19 testing. 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 Patient reports onset of symptoms 05/01/2020. She is complaining of mild sore throat, runny nose, and intermittent wet cough, as well as abdominal cramping. Denies any fever, chills, muscle aches, shortness of breath, nausea or vomiting, headache, or diarrhea. - Related Data Allergies/Adverse Reactions: No Known Allergies Allergy (Verified 02/01/20 16:27) Past Medical History - General Information source: Patient - Social History Smoking Status: Never Smoker - Past Medical History Cardiac Medical History: Reports: Hx Heart Murmur Pulmonary Medical History: Reports: None EENT Medical History: Reports: None Neurological Medical History: Reports: None Endocrine Medical History: Reports: Hx Hypothyroidism Renal/ Medical History: Reports: None Malignancy Medical History: Reports: None GI Medical History: Reports: None Musculoskeletal Medical History: Reports None Skin Medical History: Reports None Psychiatric Medical History: Reports: None Denies: Hx Depression Traumatic Medical History: Reports: None Infectious Medical History: Reports: None Past Surgical History: Reports: Hx Oral Surgery, Hx Orthopedic Surgery Physical Exam - General General appearance: Appears well, Alert In distress: None Notes: PHYSICAL EXAMINATION: GENERAL: Well-appearing and in no acute distress. HEAD: Atraumatic, normocephalic. EYES: sclera anicteric, conjunctiva are normal. ENT: nares patent. Moist mucous membranes. NECK: Normal range of motion, supple without lymphadenopathy. LUNGS: No increased work of breathing. Lung sounds CTAB and equal. No wheezes rales or rhonchi. HEART: Regular rate and rhythm without murmurs. ABDOMEN: Soft, nontender, normal bowel sounds, no guarding. EXTREMITIES: Normal range of motion, no pitting edema. No cyanosis. NEUROLOGICAL: A&O x 3. Normal speech. PSYCH: Normal mood, normal affect. SKIN: Warm, Dry, normal turgor, no rashes or lesions noted Diagnostic Results Laboratory Results: rapid strep and flu negative; throat culture and covid pending Patient Education/Counseling Counseling/Education: Patient presents with symptoms associated with possible Covid 19 infection. Patient does not have emergency worrying symptoms such as difficulty breathing, shortness of breath, chest pain, pressure, confusion or cyanosis. Patient appears suitable for discharge as vital signs are stable and patient is nontoxic in appearance. Good return precautions have been discussed with patient, patient verbalized understanding and is agreeable with discharge plan of care at this time. Guidance for worsening S/SX: As a person under investigation for Covid 19, the [place] department of Health and Human Services, division of public health advises you to adhere to the following guidance until your test results are reported to you. If your test result is positive, you will receive additional information from your provider and your local health department at that time. Remain at home until you are cleared by the health provider or public health authorities. Keep a log of visitors to your home, notify any visitors to your home of your isolation status. If you plan to move to a new address or leave the county, notify the local health department in your County. Call your doctor or seek care if you have an urgent medical need. Before seeking medical care, call ahead to get instructions from the provider before arriving at the medical office clinic or hospital. Notify them that you are being tested for the virus that causes Covid 19 so that arrangements can be made, as necessary, to prevent transmission to others in the healthcare setting. Next, notify the local health department in your county. If a medical emergency arises and you need to call 911, inform the first responders that you are being tested for the virus that causes Covid 19. Next, notify the local health department in your county. [facility] Discharge - Discharge Clinical Impression: Encounter for screening laboratory testing for COVID-19 virus Upper respiratory infection Qualifiers: URI type: acute nasopharyngitis (common cold) Qualified Code(s): J00 - Acute nasopharyngitis [common cold] Condition: Good Disposition: Home; Selfcare
[2020-05-02 14:03] LABS: A TYPE INFLUENZA AG NEGATIVE (NEGATIVE); B INFLUENZA AG NEGATIVE (NEGATIVE)
== END ==
LOC: RDC 11:40
PROVIDERS: ATTEND Registered Nurse
DX: J00 Acute nasopharyngitis [common cold] (principal); Z20.828 Contact with and (suspected) exposure to other viral communicable diseases; R05 Cough; R10.9 Unspecified abdominal pain; J34.89 Other specified disorders of nose and nasal sinuses; E03.9 Hypothyroidism, unspecified
CPT/HCPCS: 87070; 87880; 87635; 87804; C9803; 99201; 99211

== ENCOUNTER → 2020-09-01 | Outpatient (CLI) | payer OTHER ==
[2020-09-01 11:09] LABS: FREE T3 3.59 pg/mL (2.77-5.27); FREE T4 (FREE THYROXINE) 1.08 ng/dL (0.78-2.19)
[2020-09-01 11:23] LABS: THYROID STIMULATING HORMONE 3.85 uIU/mL (0.47-4.68)
== END ==
LOC: LAB 09:24
PROVIDERS: ATTEND Physician Assistant Medical
DX: E06.3 Autoimmune thyroiditis (principal)
CPT/HCPCS: 36415; 84439; 84443; 84481

== ENCOUNTER → 2020-09-10 | Outpatient (CLI) | payer OTHER ==
[~2020-09-10] MED LIST: COVID-19 VACCINE (PFIZER)/PF 30 MCG/0.3 ML VIAL IM ONE; EPINEPHRINE INJ/PF 1 MG/1 ML AMPULE IM PRN
== END ==
LOC: EMPHEALTH 10:40
PROVIDERS: ATTEND Internal Medicine
DX: Z23 Encounter for immunization (principal)
CPT/HCPCS: 91300